=== PATIENT | female | born 1965 | race Hispanic/Latino ===

== ENCOUNTER 2019-04-02 18:58 | Emergency (ER) | payer SELFPAY ==
[~2019-04-02] VITALS: Ht 152.4 cm; Wt 70.3 kg
[2019-04-02 20:00] LABS: BASOPHILS % 0.1 % (0.0-1.0); EOSINOPHILS # (AUTO) 0.6 (0.0-0.4); EOSINOPHILS % 7.2 % (0.0-6.0); HEMOGLOBIN 10.4 g/dL (12.0-16.0); LYMPHOCYTES % 24.9 % (18.0-39.1); MEAN CORPUSCULAR HGB CONC 31.5 g/dL (31-35); MEAN CORPUSCULAR VOLUME 82.5 fL (81-99); MONOCYTES # (AUTO) 0.2 (0.2-0.8); MONOCYTES % 2.2 % (4.4-11.3); NEUTROPHILS # (AUTO) 5.2 (2.1-6.9); NEUTROPHILS % 65.2 % (38.7-80.0); PLATELET COUNT 551 x10e3/uL (140-360); RED CELL DISTRIBUTION WIDTH 15.3 % (11.7-14.4)
--- NOTE | 2019-04-02 20:07 | Diagnostic Imaging Report ---
EXAMINATION: CHEST SINGLE (PORTABLE) INDICATION: Left chest wall pain. COMPARISON: None. FINDINGS: TUBES and LINES: None. LUNGS: Lungs are not well inflated. There is left basilar atelectasis. There is no evidence of pneumonia or pulmonary edema. PLEURA: Trace left pleural effusion. No right pleural effusion or pneumothorax. HEART AND MEDIASTINUM: The cardiomediastinal silhouette is unremarkable. BONES AND SOFT TISSUES: No acute osseous lesion. Soft tissues are unremarkable. UPPER ABDOMEN: No free air under the diaphragm. IMPRESSION: Trace left pleural effusion, and left basilar atelectasis suggestive of atelectasis. Developing pneumonia could have this appearance in the proper clinical setting. Recommend follow-up chest PA and lateral views in 6-8 weeks after treatment to document resolution. Signed by: Dr. Nelli Choi M.D. on 04/02/2019 8:04 PM
[2019-04-02 20:16] LABS: BILIRUBIN,URINE NEGATIVE (NEGATIVE); CLARITY,URINE CLEAR (CLEAR); COLOR,URINE YELLOW (YELLOW); KETONES,URINE NEGATIVE (NEGATIVE); LEUKOCYTE ESTERASE ,URINE NEGATIVE (NEGATIVE); NITRITE,URINE NEGATIVE (NEGATIVE); PROTEIN,URINE DIPSTICK NEGATIVE (NEGATIVE); URINE UROBILINOGEN 0.2 mg/dL (0.2 - 1)
[2019-04-02 20:30] LABS: ALANINE AMINOTRANSFERASE 10 IU/L (0-55); ALBUMIN 3.1 g/dL (3.5-5.0); ALBUMIN/GLOBULIN RATIO 0.7 (0.8-2.0); ALKALINE PHOSPHATASE 72 IU/L (40-150); ANION GAP 17.1 mmol/L (8-16); BLOOD UREA NITROGEN 7 mg/dL (7-26); BUN/CREATININE RATIO 11 (6-25); CALCIUM 9.7 mg/dL (8.4-10.2); CARBON DIOXIDE 24 mmol/L (22-29); CHLORIDE 102 mmol/L (98-107); CREATININE, SERUM 0.61 mg/dL (0.57-1.11); EST GLOMERULAR FILTRATION RATE > 60 ML/MIN (60-); GLUCOSE 106 mg/dL (74-118); POTASSIUM 4.1 mmol/L (3.5-5.1); SODIUM 139 mmol/L (136-145)
[2019-04-02 20:39] LABS: CREATINE KINASE < 7 IU/L (29-168)
[2019-04-02 20:58] LABS: BACTERIA,URINE FEW /HPF; EPITHELIAL CELLS,URINE FEW /LPF; RBC,URINE 0-5 /HPF (0-5); WBC,URINE (MAN) 0-5 /HPF (0-5)
[2019-04-02] MEDS ORDERED: TRAMADOL HCL 50 MG TAB PO ONE (21:00)
[2019-04-02] MEDS ORDERED: IOPAMIDOL 370 MG/ML 200 ML INFUS..BTL INJ ONE (21:06)
[2019-04-02] MEDS ORDERED: SODIUM CHLORIDE 0.9% 50ML 50 ML ONE (21:06)
--- NOTE | 2019-04-02 22:48 | Diagnostic Imaging Report ---
EXAM: CT Chest WITH contrast 04/02/2019 8:55 PM INDICATION: Chest pain. Pulmonary embolism. COMPARISON: None TECHNIQUE: Chest was scanned utilizing a multidetector helical scanner from the lung apex through the level of the adrenal glands without administration of IV contrast. Coronal and sagittal reformations were obtained. Pulmonary embolism protocol was performed. IV CONTRAST: 100 cc Isovue-300 RADIATION DOSE: Total DLP: 430.84 mGy*cm Estimated effective dose: (DLP x 0.014 x size factor) mSv COMPLICATIONS: None FINDINGS: LINES/ TUBES: None. LUNGS AND AIRWAYS: Bibasilar subsegmental compressive atelectasis with calcified granuloma in the posterior right lung base. Patchy density in the lingula and left lower lobe may represent atelectasis, however, an element of infection cannot be excluded. PLEURA: Bilateral trace pleural effusion, left greater than right. No pneumothorax. HEART AND MEDIASTINUM: The thyroid gland is normal. No mediastinal, hilar or axillary lymphadenopathy. The heart is normal in size.. There is no pericardial effusion. UPPER ABDOMEN: Limited non-contrast views of the upper abdomen show 1.3 cm low-attenuation lesion in the lateral right hepatic lobe on image 90, nonspecific, possibly mildly complex cyst. The spleen appears prominent, however, only partially visualized. The adrenal glands are normal. BONES: No acute osseous abnormality. SOFT TISSUES: Unremarkable. IMPRESSION: 1. No pulmonary embolism. 2. Trace left pleural effusion and left basilar subsegmental atelectasis. Right basilar subsegmental atelectasis. Signed by: Dr. Nelli Choi M.D. on 04/02/2019 10:45 PM
[2019-04-02 22:55] VITALS: BP 119/76
== END 2019-04-02 23:08 | disposition home or self-care (01) ==
LOC: ER 18:58
DX: R07.89 Other chest pain (principal); J90 Pleural effusion, not elsewhere classified
CPT/HCPCS: 36415; 71045; 71260; 80053; 81001; 82550; 82553; 84484; 85025; 85379; 93005; 99284; Q9967

== ENCOUNTER 2019-04-09 00:26 | Emergency (ER) | payer SELFPAY ==
[~2019-04-09] VITALS: Ht 152.4 cm; Wt 70.3 kg
--- OUTSIDE RECORDS SUMMARY | 2019-04-09 00:29 | XMS REPORT ---
Author Author [facility] Address Unknown Phone Unavailable Care Team Providers Care Lap Regulator Name Role Phone Tammy STEWARD Unavailable Unavailable Problems This patient has no known problems. Allergies, Adverse Reactions, Alerts This patient has no known allergies or adverse reactions. Medications This patient has no known medications. Results Test Description Test Time Test Comments Text Results Atomic Results Result Comments CT CHEST W 2019-04-02 22:37:00 [place] [id number] Patient Name: BONILLA LAWSON MR #: [id number] : 1965 Age/Sex: 53/F Req #: [id number] Adm Physician: Ordered by: JIM STEWARD MD Report #: [id number] Location: ER Room/Bed: Procedure: [id number] CT/CT CHEST W Exam Date: 04/02/19 Exam Time: 2104 REPORT STATUS: Signed EXAM: CT Chest WITH contrast 04/02/2019 8:55 PM INDICATION: Chest pain. Pulmonary embolism. COMPARISON: None TECHNIQUE: Chest was scanned utilizing a multidetector helical scanner from the lung apex through the level of the adrenal glands without administration of IV contrast. Coronal and sagittal reformations were obtained. Pulmonary embolism protocol was performed. IV CONTRAST: 100 cc Isovue-300 RADIATION DOSE: Total DLP: 430.84 mGy*cm Estimated effective dose: (DLP x 0.014 x size factor) mSv COMPLICATIONS: None FINDINGS: LINES/ TUBES: None. LUNGS AND AIRWAYS: Bibasilar subsegmental compressive atelectasis with calcified granuloma in the posterior right lung base. Patchy density in the lingula and left lower lobe may represent atelectasis, however, an element of infection cannot be excluded. PLEURA: Bilateral trace pleural effusion, left greater than right. No pneumothorax. HEART AND MEDIASTINUM: The thyroid gland is normal. No mediastinal, hilar or axillary lymphadenopathy. The heart is normal in size.. There is no pericardial effusion. UPPER ABDOMEN: Limited non-contrast views of the upper abdomen show 1.3 cm low-attenuation lesion in the lateral right hepatic lobe on image 90, nonspecific, possibly mildly complex cyst. The spleen appears prominent, however, only partially visualized. The adrenal glands are normal. BONES: No acute osseous abnormality. SOFT TISSUES: Unremarkable. IMPRESSION: 1. No pulmonary embolism. 2. Trace left pleural effusion and left basilar subsegmental atelectasis. Right basilar subsegmental atelectasis. Signed by: Dr. Nelli Choi M.D. on 04/02/2019 10:45 PM Dictated By: ORAL CHOI MD, MD 44 Transcribed By: SHELLEY on 04/02/192244 COPY TO: JIM STEWARD MD CHEST SINGLE (PORTABLE) 2019-04-02 20:02:00 [place] [id number] Patient Name: BONILLA LAWSON MR #: [id number] : 1965 Age/Sex: 53/F Req #: [id number] Adm Physician: Ordered by: JIM STEWARD MD Report #: [id number] Location: ER Room/Bed: Procedure: [id number] DX/CHEST SINGLE (PORTABLE) Exam Date: 04/02/19 Exam Time: 1944 REPORT STATUS: Signed EXAMINATION: CHEST SINGLE (PORTABLE) INDICATION: Left chest wall pain. COMPARISON: None. FINDINGS: TUBES and LINES: None. LUNGS: Lungs are not well inflated. There is left basilar atelectasis. There is no evidence of pneumonia or pulmonary edema. PLEURA: Trace left pleural effusion. No right pleural effusion or pneumothorax. HEART AND MEDIASTINUM: The cardiomediastinal silhouette is unremarkable. BONES AND SOFT TISSUES: No acute osseous lesion. Soft tissues are unremarkable. UPPER ABDOMEN: No free air under the diaphragm. IMPRESSION: Trace left pleural effusion, and left basilar atelectasis suggestive of atelectasis. Developing pneumonia could have this appearance in the proper clinical setting. Recommend follow-up chest PA and lateral views in 6-8 weeks after treatment to document resolution. Signed by: Dr. Nelli Choi M.D. on 04/02/2019 8:04 PM Dictated By: ORAL CHOI MD, MD 03 Transcribed By: SHELLEY on 04/02/192003 COPY TO: JIM STEWARD MD
[2019-04-09 01:15] LABS: BASOPHILS % 0.3 % (0.0-1.0); EOSINOPHILS # (AUTO) 0.2 (0.0-0.4); EOSINOPHILS % 2.7 % (0.0-6.0); HEMATOCRIT 29.7 % (34.2-44.1); HEMOGLOBIN 9.3 g/dL (12.0-16.0); LYMPHOCYTES # (AUTO) 1.7 (1.0-3.2); LYMPHOCYTES % 28.8 % (18.0-39.1); MEAN CORPUSCULAR HEMOGLOBIN 25.1 pg (28-32); MEAN CORPUSCULAR HGB CONC 31.3 g/dL (31-35); MEAN CORPUSCULAR VOLUME 80.1 fL (81-99); MONOCYTES # (AUTO) 0.2 (0.2-0.8); MONOCYTES % 2.9 % (4.4-11.3); NEUTROPHILS # (AUTO) 3.8 (2.1-6.9); NEUTROPHILS % 64.6 % (38.7-80.0); PLATELET COUNT 590 x10e3/uL (140-360); RED BLOOD COUNT 3.71 x10e6/uL (3.6-5.1); RED CELL DISTRIBUTION WIDTH 16.1 % (11.7-14.4)
[2019-04-09] MEDS ORDERED: ASPIRIN 81 MG CHEW TAB PO ONE (01:15)
[2019-04-09 01:29] LABS: ALANINE AMINOTRANSFERASE 9 IU/L (0-55); ALBUMIN 2.4 g/dL (3.5-5.0); ALBUMIN/GLOBULIN RATIO 0.5 (0.8-2.0); ALKALINE PHOSPHATASE 135 IU/L (40-150); ANION GAP 13.4 mmol/L (8-16); BLOOD UREA NITROGEN < 5 mg/dL (7-26); CALCIUM 8.9 mg/dL (8.4-10.2); CARBON DIOXIDE 27 mmol/L (22-29); CHLORIDE 98 mmol/L (98-107); CREATINE KINASE 12 IU/L (29-168); CREATININE, SERUM 0.54 mg/dL (0.57-1.11); EST GLOMERULAR FILTRATION RATE > 60 ML/MIN (60-); GLUCOSE 119 mg/dL (74-118); POTASSIUM 3.4 mmol/L (3.5-5.1); SODIUM 135 mmol/L (136-145)
[2019-04-09 01:31] LABS: BUN/CREATININE RATIO 9 (6-25)
--- NOTE | 2019-04-09 01:48 | Diagnostic Imaging Report ---
A single frontal view of the chest. HISTORY: Shortness of breath, pain in ribs, cough COMPARISON: Chest radiograph April 02, 2019 DISCUSSION: Portable technique, limits sensitivity of the exam. Soft tissue attenuation partially limits sensitivity of the exam. Overlying monitoring leads. Tubes/Lines: None Lungs and pleura: Low lung volumes result in bibasilar vascular crowding, accentuation of the pulmonary interstitial markings, central pulmonary vasculature, and the cardiac silhouette. Allowing for these limitations, the findings are as follows: Small left and trace right pleural effusions with adjacent atelectasis, the decompressed lungs cannot be evaluated. Heart and mediastinum: The cardiac silhouette appear(s) and central pulmonary vasculature appear mildly enlarged. Bones and soft tissues: Appear unremarkable, given this limited exam. IMPRESSION: 1. Slightly increased small left and trace right pleural effusions with adjacent atelectasis. 2. Mild central pulmonary vascular congestion. Signed by: Dr. Aurelio Price D.O., M.M.M. on 04/09/2019 1:45 AM
[2019-04-09 02:22] LABS: BILIRUBIN,URINE NEGATIVE (NEGATIVE); CLARITY,URINE CLEAR (CLEAR); COLOR,URINE YELLOW (YELLOW); KETONES,URINE NEGATIVE (NEGATIVE); LEUKOCYTE ESTERASE ,URINE NEGATIVE (NEGATIVE); NITRITE,URINE NEGATIVE (NEGATIVE); PROTEIN,URINE DIPSTICK NEGATIVE (NEGATIVE); URINE UROBILINOGEN 0.2 mg/dL (0.2 - 1)
[2019-04-09 02:31] LABS: BACTERIA,URINE RARE /HPF; EPITHELIAL CELLS,URINE FEW /LPF; RBC,URINE 0-5 /HPF (0-5); WBC,URINE (MAN) 0-5 /HPF (0-5)
[2019-04-09] MEDS ORDERED: ASPIRIN 81 MG CHEW TAB ONE (05:17)
[2019-04-09 05:51] LABS: CREATINE KINASE MB 0.4 ng/mL (0-5.0)
[2019-04-09 07:50] VITALS: BP 116/63
== END 2019-04-09 07:52 | disposition home or self-care (01) ==
LOC: ER 00:26
DX: R07.89 Other chest pain (principal); R11.0 Nausea; R53.83 Other fatigue
CPT/HCPCS: 36415; 71045; 80053; 81001; 82550; 82553; 82948; 83605; 83690; 84484; 85025; 93005; 99284

== ENCOUNTER 2020-08-24 09:48 | Emergency (ER) | payer SELFPAY ==
[~2020-08-24] VITALS: Ht 152.4 cm; Wt 70.3 kg
[2020-08-24] MEDS ORDERED: ZOFRAN4 MG SL (10:05)
[2020-08-24] MEDS ORDERED: TYLENOL # 31 EA PO (10:05)
== END 2020-08-24 10:12 | disposition home or self-care (01) ==
LOC: ER 09:59
DX: U07.1 COVID-19 (principal); R50.9 Fever, unspecified; R05 Cough; R06.02 Shortness of breath; M32.9 Systemic lupus erythematosus, unspecified
CPT/HCPCS: 99283

== ENCOUNTER 2021-12-26 02:02 | Emergency (ER) | payer SELFPAY ==
[~2021-12-26] VITALS: Ht 160 cm; Wt 59.0 kg
[~2021-12-26 02:02] MED LIST: TYLENOL # 31 EA PO; ZOFRAN4 MG SL
[2021-12-26] MEDS ORDERED: KETOROLAC TROMETHAMINE 60 MG/2 ML VIAL IM STA (02:05)
[2021-12-26] MEDS ORDERED: PREDNISONE 20 MG TAB PO STA (02:05)
[2021-12-26] MEDS ORDERED: ONDANSETRON HCL 4 MG ORAL DISINTEGRATING TAB PO STA (02:14)
[2021-12-26] MEDS ORDERED: PREDNISONE20 MG PO (02:20)
[2021-12-26] MEDS ORDERED: ACETAMINOPHEN-1 EAC4 PO (02:20)
[2021-12-26] MEDS ORDERED: ONDANSETRON ODT4 MG PO (02:20)
[2021-12-26] MEDS ORDERED: Morphine 4mg Syringe 4 MG/ML INJ IM STA (02:50)
[2021-12-26] MEDS ORDERED: Morphine 2mg Syringe 2 MG/ML SYR ONE (03:03)
== END 2021-12-26 03:26 | disposition home or self-care (01) ==
LOC: ER 02:04
DX: M32.9 Systemic lupus erythematosus, unspecified (principal)
CPT/HCPCS: 99283; J1885; J2270; J7512; Q0162